=== PATIENT | male | born 1965 | race Caucasian/White ===

== ENCOUNTER 2017-12-19 08:56 | Inpatient (IN) | payer SELFPAY ==
[2017-12-19 09:20] LABS: #Lymphocytes 0.4 thou/uL (1.20-3.40); #Monocytes 0.9 thou/uL (0.11-0.59); #Neutrophils 10.7 thou/uL (1.40-6.50); %Basophils 0.3 % (0.0-1.0); %Eosinophils 0.1 % (0.0-10.0); %Lymphocytes 3.1 % (21.0-51.0); %Monocytes 7.1 % (0.0-10.0); %Neutrophils 89.3 % (42.0-75.0); Hemoglobin 15.5 g/dL (14.0-18.0); Mean Corpuscular HGB CONC 33.6 g/dL (32.0-36.0); Mean Corpuscular Hemoglobin 34.4 pg (27.0-31.0); Mean Platelet Volume 6.7 fL (7.4-10.4); Platelet Count 193 thou/uL (130-400); RBC Distribution Width 13.1 % (11.5-14.5); Red Blood Cell (RBC) Count 4.51 mill/uL (4.70-6.10)
[2017-12-19] MEDS ORDERED: Fentanyl 250 MCG/5 ML VIAL ONE (09:22)
[2017-12-19 09:27] LABS: Bilirubin Negative (Negative); Blood, Urine Small (Negative); Clarity CLEAR (Clear); Glucose, Urine (Dipstick) 100 mg/dL (Negative); Leukocyte Negative (Negative); Nitrite Negative (Negative); Protein, Urine (Dipstick) Negative (Neg-Trace); Specific Gravity, Urine 1.009 (1.002-1.036); Urobilinogen 0.2 mg/dL (0.2-1.0)
[2017-12-19 09:29] LABS: Bacteria/HPF None Seen HPF (None Seen); Hyaline Casts/LPF 4-6 HYALINE CAST LPF (0-3 Hyaline); Pathc Cast-AUWi Flag 1.16 (0-2.49); RBC/HPF 0-3 HPF (0-3); Squamous Epithelial 0-3 HPF (0-3); WBC/HPF None Seen HPF (0-3)
[2017-12-19] MEDS ORDERED: Dextrose 50% Abboject 50 ML SYRINGE SLOW IVP PRN (09:34)
[2017-12-19] MEDS ORDERED: Dextrose 5% in Water 1,000 ML IV PRN (09:34)
[2017-12-19 09:40] LABS: Medtox Reader # READER 1; THC/Cannabinoid Screen Not Detected (NotDetected)
[2017-12-19 09:41] LABS: Amphetamine Not Detected (NotDetected); Barbiturates Screen Not Detected (NotDetected); Benzodiazepine Screen Not Detected (NotDetected); Cocaine Metabolite Screen Not Detected (NotDetected); Medtox Control Line Valid? VALID (VALID); Methadone Not Detected (NotDetected); Methamphetamine Not Detected (NotDetected); Opiate Screen Not Detected (NotDetected); Oxycodone Screen Not Detected (NotDetected); Phencyclidine (PCP) Not Detected (NotDetected); Tricyclic Screen Not Detected (NotDetected)
[2017-12-19 09:44] LABS: ALT (SGPT) 61 U/L (8-55); AST (SGOT) 85 U/L (5-34); Acetaminophen Less than 6.0 mcg/mL (10.0-30.0); Albumin 4.4 g/dL (3.5-5.0); Alcohol 38 mg/dL (Less than 10); Alkaline Phosphatase 87 U/L (40-150); Anion Gap 27 mmol/L (10-20); BUN (Urea Nitrogen) 9 mg/dL (8.4-25.7); Bilirubin, Total 1.3 mg/dL (0.2-1.2); Calc. Creatinine Clearance 0 mL/min (70-130); Calcium 9.5 mg/dL (7.8-10.44); Carbon Dioxide 20 mmol/L (22-29); Chloride 94 mmol/L (98-107); Estimated GFR-MDRD Greater than 90; Globulin 3.2 g/dL (2.4-3.5); Glucose 146 mg/dL (70-105); Potassium 4.1 mmol/L (3.5-5.1); Protein, Total 7.6 g/dL (6.0-8.3); Salicylate Less than 8.0 mg/dL (15.0-30.0); Sodium 137 mmol/L (136-145)
[2017-12-19] MEDS ORDERED: Acetaminophen 1,000 MG in Premix Bag 1 BAG IVPB SCH (09:45)
--- NOTE | 2017-12-19 10:01 | HP ---
CHIEF COMPLAINT: Fall. HISTORY: Patient is a 52-year-old male recently transferred here from [place] who is a known alco holic. Evidently, he fell yesterday, hit his head and was not acting well. This morning, he was fou nd down, not responsive. EMS was called. He was intubated. He had vomit everywhere including aspir ation as I tried to intubate him. He apparently had hit his head about 6:00 p.m. last night. PAST MEDICAL HISTORY: Significant for alcoholism. PAST SURGICAL HISTORY: Unknown. MEDICATIONS: Unknown. SOCIAL HISTORY: Alcoholism. PHYSICAL EXAMINATION: VITAL SIGNS: Temperature 102, pulse 143, 80% sat, blood pressure 140/92. GENERAL: His GCS is 3. His right pupil dilated 4 mm left at 3.5 mm, very minimal reaction. HEENT: He has an endotracheal tube and an oral gastric tube in. He does have a hematoma on the left occipital region. He has black emesis or black coffeeground material from his OG tube. NECK: His neck is in a C-collar. Trachea midline. CHEST: No signs of trauma. He has decreased breath sounds on the left. ABDOMEN: Slightly distended, no scars, no masses, no hernias. EXTREMITIES: Unremarkable. He is very thin. BACK: Unremarkable. GENITOURINARY: He has decreased rectal tone. He has brown stool in the vault. LABORATORY DATA AND IMAGING DATA: Hemoccult positive. His chest x-ray shows a consolidation in the left lobe and the endotracheal tube was in down enough, so it has been advanced. His KUB was unremar kable. His CT scan of the brain shows right subdural epidural with midline shift. C-spine is unrema rkable. Chest showed some consolidation. CT abdomen and pelvis yet to be read, nothing gross, diste nded bladder. ASSESSMENT: Closed head injury with intracranial bleed, midline shift, upper GI bleed, alcohol abuse , aspiration pneumonia. PLAN: Stat neurosurgical consultation. Critical care time 1 hour.
--- NOTE | 2017-12-19 10:11 | RAD ---
AP CHEST: History: Trauma. FINDINGS: An NG tube has been placed. The tip is not visualized but appears positioned through the EG junction. There is hazy opacity overlying the left lung. This could represent pleural fluid layering posterior ly on this semi-erect study. No evidence of rib fracture seen. The right lung is well aerated and umang ar. IMPRESSION: Hazy opacification of the left chest. See CT chest for further characterization. POS: [facility]
--- NOTE | 2017-12-19 10:14 | CT ---
CT CERVICAL SPINE: Technique: Multiple axial tomograms were obtained through the cervical spine with multiplanar reconst ructions. Indication: Trauma. Patient fell with injury to head and neck. FINDINGS: The cervical vertebrae maintain normal height and alignment. There are mild degenerative changes seen with anterior osteophytes at C4, C5, and C6 levels. No evidence of cervical spine fracture. IMPRESSION: No evidence of cervical spine fracture. POS: [facility]
[2017-12-19] MEDS ORDERED: cefTRIAXone\\ROCEPHIN 2 GM VIAL ONE (10:18)
--- NOTE | 2017-12-19 10:21 | CT ---
CT HEAD NONCONTRAST: History: Fall. Head injury. FINDINGS: A very large lentiform heterogeneous predominately hyperdense fluid collection along the inner convex ity of the right calvarium results in displacement of the underlying right cerebral hemisphere by up to 2.9 cm. A peripheral rim of low density fluid may hyper acute hemorrhage. Small amount of subarach noid hemorrhage is present throughout the right cerebral sulci. There is severe effacement of the loly tricular system with up to 1.9 cm leftward shift of the septum pellucidum. Diffuse effacement of the cerebral sulci. Cerebellar tonsils extend into the foramen magnum. Right frontal lobe extends inferio r to the falx. Right temporal lobe protrudes beyond the right tentorium. Large area of decreased dens ity involves the right occipital lobe measuring up to 6.6 cm. Chronic ischemic small vessel disease i s also apparent within the periventricular white matter of each cerebral hemisphere. Paranasal sinuse s remain well aerated. At the expected location of the right side of the david, a vertically oriented area of decreased density is favored to represent the temporal horn of the right lateral ventricle di splaced medially in uncal herniation. IMPRESSION: Very large acute and hyperacute right subdural hematoma with multifocal herniation including uncal he rniation of the right temporal lobe and severe leftward shift of the septum pellucidum. Severe diffus e cerebral edema. Immediate neurosurgical intervention is warranted. Findings were called to Dr. Hunt at 0921 hours. Code CR POS: [facility]
--- NOTE | 2017-12-19 10:38 | CT ---
CT CHEST AND ABDOMEN AND PELVIS WITH IV CONTRAST: Multiple axial tomograms were obtained through the chest, abdomen, and pelvis with IV enhancement. T rauma protocol was followed. INDICATION: Trauma protocol. The patient was found down and unconscious. FINDINGS: CT CHEST: Ground-glass opacification of the left lower lobe without confluent consolidation. This could repres ent early changes of aspiration pneumonia. Close followup recommended. There are also patchy infiltrative changes in the anterior aspect of the right middle lobe, concernin g for aspiration pneumonitis. Mediastinum unremarkable. Bony thorax appears intact. IMPRESSION: Patchy infiltrative changes of the anterior right middle lobe and a ground-glass opacity in the poste rior left lower lobe. Both of these areas of concerning for aspiration pneumonitis. CT ABDOMEN AND PELVIS: The liver shows evidence of fatty infiltration. The spleen and pancreas are unremarkable. Adrenal g lands are unremarkable. Kidneys unremarkable. Bowel loops unremarkable. Urinary bladder is distended. A Main catheter is in place; however, function should be assessed giv en the distended bladder. Prominent calcifications are seen in the prostate. The osseous structures appear intact. IMPRESSION: 1. No acute intraabdominal injury. 2. Distended bladder. A Main catheter is in place; however, function should be assessed. Findings are related to Dr. Walker. CODE CR POS: [facility]
--- NOTE | 2017-12-19 11:22 | RAD ---
FRONTAL VIEW PELVIS: CLINICAL HISTORY: Posttraumatic pelvic pain. FINDINGS: The pelvis is rotated limiting assessment. No dislocation of the hip joints. No discrete fracture e vident. There is a focal rounded density projecting over the right pubic body, not further localized . IMPRESSION: 1. No acute fracture of the pelvis evident. 2. Focal calcification within the pelvis. POS: [facility]
[2017-12-19 11:31] VITALS: BMI 23.8
--- NOTE | 2017-12-19 12:05 | OP ---
DATE OF PROCEDURE: 12/19/2017 PREOPERATIVE DIAGNOSES: 1. Acute severe traumatic brain injury with large complexity of right subdural hematoma. 2. Severe cerebral edema with herniation and evolution. 3. Acute hypoxemic posttraumatic respiratory failure. 4. Probable pulmonary aspiration. POSTOPERATIVE DIAGNOSES: 1. Acute severe traumatic brain injury with large complexity of right subdural hematoma. 2. Severe cerebral edema with herniation and evolution. 3. Acute hypoxemic posttraumatic respiratory failure. 4. Probable pulmonary aspiration. PROCEDURES PERFORMED: 1. Exchange of size 8 endotracheal tube for previous size 7 endotracheal tube over a bougie. 2. Fiberoptic bronchoscopy will bronchioalveolar lavage. INDICATIONS FOR PROCEDURE: A 52-year-old man who was admitted following an apparent ground level fal l with severe acute traumatic brain injury with herniation syndrome and evolution. The patient has b een evaluated by Neurosurgery. He has remained with a [place] coma scale of 3 since initial contact with EMS. Decision was made to pursue a nonoperative management as surgery is unlikely to reverse th is patient's course. He had a chest x-ray which revealed left-sided abnormal pulmonary opacification . Pulmonary aspiration was suspected due to persistent hypoxemia. Decision was made therefore to re place the endotracheal tube for size 8 and then to perform a bronchoscopy. DESCRIPTION OF PROCEDURE: The patient was placed on FiO2 100%. A bougie was passed through the prev ious size 7 endotracheal tube and advanced into the distal trachea. The size 7 endotracheal tube was then withdrawn over the bougie stylet. A size 8 tracheostomy tube was then advanced over the bougie and placed in the distal tracheal lumen without resistance. The bougie was removed. The patient is connected to mechanical ventilation via the newly placed endotracheal tube. Good tidal volume is re turned. Once the tube is secured into place, we decided to proceed with bronchoscopy. Fiberoptic br onchoscope was introduced through this endotracheal tube and advanced to visualize the shanna. The s cope was then advanced to the left upper and left lower lobe where multiple mucous plugs were encount ered and irrigated with saline and evacuated. Scope was then withdrawn and advanced to the right upp er lobe, bronchus intermedius and finally right lower lobe. Again, scattered mucus plugs were encoun tered here, irrigated with saline and evacuated. Following pulmonary toilet, the bronchoscope was wi thdrawn visualizing intact tracheobronchial mucosa. The patient remains hemodynamically stable albei t in, on no narcotics, sedatives or paralytics at this time.
[2017-12-19] MEDS ORDERED: ISOVUE-370 76%-LOCM 1 ML ONE (12:10)
[2017-12-19] MEDS ORDERED: Sodium Chloride 0.9% 1,000 ML IV SCH ×2 (12:15→17:00)
--- NOTE | 2017-12-19 12:39 | PRG ---
DATE OF SERVICE: 12/19/2017 HISTORY OF PRESENT ILLNESS: Mr. Peng is a 52-year-old man who apparently fell down yesterday hitti ng his head. The patient was found this morning down, unknown duration. He was brought to the emerg ency department. Workup revealed a large right convexity subdural hematoma with profound cerebral ed mildred and herniation and evolution. The patient has been evaluated by Neurosurgery and no surgical int ervention is contemplated at this time. He is admitted to the Intensive Care Unit SUBJECTIVE: He is on full mechanical ventilator support, FiO2 of 100%. Initial oxygen saturation wa s noted at 91%. The patient apparently aspirated. I exchanged the size 7 endotracheal tube for a size 8 endotracheal tube to facilitate bronchoscopy. Currently, the patient is in coma. He is not on any narcotics or sedatives. Despite this, Betty c elida scale has remained at 3T. PHYSICAL EXAMINATION: VITAL SIGNS: Includes blood pressure 105/83, pulse 130, respiratory rate 31, temperature is 102.1 de grees Fahrenheit, oxygen saturation was 91%, on FiO2 of 100%. HEENT: Both pupils are fixed at 5 mm. The patient has no gag, but positive corneal and cough reflex es. HEART: Reveals regular rate with sinus tachycardia. No murmurs or gallops auscultated. LUNGS: Reveals bibasilar rhonchi. Breathing is otherwise regular and unlabored. ABDOMEN: Soft, nondistended. Liver and spleen nonpalpable below costal margin. EXTREMITIES: Reveal 2+ radial and pedal pulses bilaterally. No ankle edema. LABORATORY: I have reviewed a CBC with 12,000 white blood cells, hemoglobin and hematocrit 15.5 and 46.2 respectively. Platelet count is 193,000. I also reviewed metabolic profile: Sodium 137, potas sium is 4.1, chloride is 94, bicarbonate 20, BUN 9, creatinine 0.80, glucose is 146. Lactic acid is 5.2. AST and ALT are 85 and 61 respectively. I reviewed the toxicology screen from the emergency de partment which was negative for any illicit substances. Specifically, speaking alcohol level was 38. I have also reviewed the chest x-ray which reveals a left pulmonary opacification. No pneumothorax o r pleural effusion noted. CT scan of the brain reveals a large right convexity subdural hematoma with herniation and evolution. IMPRESSION: 1. Acute devastating traumatic brain injury with a large right convexity subdural hematoma. 2. Brain herniation syndrome and evolution. 3. Acute hypoxemic posttraumatic respiratory failure. 4. Aspiration pneumonia. PLAN: 1. Continue with aggressive pulmonary toilet and broad spectrum antibiotic therapy. 2. Continue with fluid resuscitation to resolve the lactic acidosis. 3. With follow urinary output as end-point of our resuscitation. Above findings and plan will be communicated with the patient's family once they have been contacted. Total critical care time is 45 minutes.
[2017-12-19 13:28] LABS: Lactic Acid 4.7 mmol/L (0.5-2.2)
[2017-12-19] MEDS: Sodium Chloride 0.9% 1,000 ML IV SCH ×2 (13:40→17:58)
[2017-12-19] MEDS ORDERED: Hydrocortisone Sod Succ/PF 100 mg/2 ml Vial ONE (16:15)
[2017-12-19] MEDS ORDERED: Levothyroxine 100 MCG SDV SLOW IVP SCH (16:30)
[2017-12-19] MEDS ORDERED: Calcium Chloride 1 GM/10 ML Abboject SYRINGE ONE (16:45)
[2017-12-19] MEDS ORDERED: Calcium Chloride 1 GM/10 ML Abboject SYRINGE IVP SCH (17:00)
[2017-12-19] MEDS ORDERED: Levothyroxine 100 MCG SDV IVP SCH (17:00)
[2017-12-19] MEDS ORDERED: Hydrocortisone Sod Succ/PF 100 mg/2 ml Vial IVP SCH (17:00)
[2017-12-19] MEDS ORDERED: Albumin 5% 500 ML ONE (17:28)
[2017-12-19 18:04] LABS: CO2 Tension 33.7 mmHg (35.0-45.0); O2 Tension (PaO2) 113.6 mmHg (80.0-100.0); pH, Arterial 7.54 (7.35-7.45)
[2017-12-19 18:05] LABS: Actual Bicarbonate (HCO3a) 28.4 mEq/L (22-28); Base Excess (BEa) 6.2 mEq/L (-2.0 to +3.0); Hemoglobin (Hb) 14.8 g/dL (14.0-18.0); Puncture Site RRA
[2017-12-19 18:06] LABS: ALV-art Gradient 557.275 (0-20)
[2017-12-19 19:27] LABS: Sodium 150 mmol/L (136-145)
[2017-12-19] MEDS ORDERED: hydrALAZINE 20 MG/ML VIAL SLOW IVP PRN (19:54)
[2017-12-19] MEDS ORDERED: Labetalol HCl 100 MG/20 ML VIAL SLOW IVP PRN (19:54)
--- NOTE | 2017-12-19 20:39 | OP ---
DATE OF PROCEDURE: 12/19/2017 PREOPERATIVE DIAGNOSES: 1. Devastating acute traumatic brain injury. 2. Brain herniation and evolution. 3. Acute posttraumatic respiratory failure. POSTOPERATIVE DIAGNOSES: 1. Devastating acute traumatic brain injury. 2. Brain herniation and evolution. 3. Acute posttraumatic respiratory failure. PROCEDURES PERFORMED: 1. Placement of right femoral triple-lumen central venous catheter. 2. Placement of right femoral arterial catheter. SURGEON: Hans Ahumada D.O. INDICATIONS FOR PROCEDURE: A 52-year-old man who suffered devastating acute traumatic brain injury w ith brain herniation and evolution. Ongoing resuscitation is required, pending family conference. DESCRIPTION OF PROCEDURE: The patient was placed in supine position. The right groin was sterilely prepped and draped in usual fashion. A right femoral artery was palpated and then cannulated with a 20-gauge introducer needle returning pulsatile blood. A guidewire was passed through this needle and advanced into the right femoral artery without resistance. Needle was withdrawn over the guidewire. A 20-gauge femoral arterial catheter was then advanced over the guidewire and advanced into the rig ht femoral artery without resistance. The guidewire is removed. Catheter was connected to a transdu cer noting proper arterial waveforms. Catheter secured to right groin using 3-0 silk suture. The ri t femoral vein was then cannulated medial to the arterial pulse, this was done using an 18-gauge in troducer needle returning dark venous blood. A guidewire was advanced through the needle and placed in the right femoral vein without resistance. The needle was withdrawn over the guidewire. A stab i ncision was made adjacent to the guidewire using an 11 scalpel. Dilator was passed over the guidewir e dilating subcutaneous tissue. Dilator was removed and a triple-lumen central venous catheter was a dvanced over the guidewire and placed in the right femoral vein without resistance. Guidewire was re moved. Dark venous blood was aspirated from all 3 ports which were individually flushed with saline. Catheter secured to the right groin using 3-0 silk suture at 2 points. Biopatch and sterile dressi ngs was applied. The patient tolerated this procedure without any apparent complications.
[2017-12-19 23:03] LABS: Sodium 152 mmol/L (136-145)
[2017-12-19] MEDS: Famotidine/PF 20 mg/2ml Vial SLOW IVP SCH (23:23)
--- NOTE | 2017-12-20 00:43 | CON ---
DATE OF CONSULTATION: 12/19/2017 HISTORY OF PRESENT ILLNESS: This is a 52-year-old male who was brought to the emergency room via EMS for head trauma. History is unclear. The patient was in drunk and fell at 1800 yesterday, hitting at the back of his head. The patient was found face down on the couch with vomit around him, some vo daniel aspirated, and the patient had had diarrhea. The patient has not woken up since, currently unres ponsive and intubated. The last seen normal was at 2100 last night. REVIEW OF SYSTEMS: Unable to obtain review of systems the patient is intubated. PAST MEDICAL HISTORY: Unknown. PAST SURGICAL HISTORY: Unknown. SOCIAL HISTORY: Unknown other than patient drinks alcohol every day. ALLERGIES: Unable to obtain any known drug allergies. MEDICATIONS: Unable to obtain. PHYSICAL EXAMINATION: VITAL SIGNS: Pulse 142, temperature 102, O2 sats 80 on ventilator, blood pressure 130/92, respiratio ns 21. The patient is febrile, temperature of 102. He is tachycardic and hypertensive. GENERAL: The patient is unresponsive in the ER, trauma room bed. HEENT: Eyes: Pupils are equal and round, they are not reactive to light. There are no extraocular movements. RESPIRATORY: Breath sounds are clear. The patient is on a ventilator. CARDIOVASCULAR: There is tachycardia, normal heart sounds. NEUROLOGIC: [place] coma scale of 3. Pupils are nonreactive to light. There is no gag reflex, no r esponse to painful stimuli, no scleral reflex. IMAGING: CT head without contrast, large right subdural hematoma and subfalcine herniation. ASSESSMENT AND PLAN: This patient has a large right subdural hematoma and subfalcine herniation. Th ere is no surgical intervention that could create a meaningful outcome for this patient. Neurosurger y signs off.
[2017-12-20] MEDS ORDERED: Norepinephrine 8 MG/0.9% NS 250 ML ONE (02:43)
[2017-12-20] MEDS ORDERED: Insulin Regular 300 UNITS/3 ML VIAL ONE (03:11)
[2017-12-20] MEDS ORDERED: Dextrose 50% Abboject 50 ML SYRINGE ONE (03:11)
[2017-12-20] MEDS ORDERED: Norepinephrine 8 MG/250 ML BAG IVPB PRN (03:12)
[2017-12-20] MEDS ORDERED: Dextrose 50% Abboject 50 ML SYRINGE SLOW IVP SCH (03:15)
[2017-12-20] MEDS ORDERED: Insulin Regular 300 UNITS/3 ML VIAL IVP SCH (03:15)
[2017-12-20] MEDS ORDERED: SODIUM CHLORIDE 0.9% IVPB SCH (03:15)
[2017-12-20] MEDS ORDERED: METHYLPREDNISOLONE SOD SUCC IVPB SCH (03:15)
[2017-12-20] MEDS: Sodium Chloride 0.9% 1,000 ML IV SCH (03:18)
[2017-12-20] MEDS ORDERED: Levothyroxine 100 MCG SDV IVP SCH (03:30)
[2017-12-20 04:19] LABS: INR-International Normal Ratio 1.2; PTT 37.5 SEC (22.9-36.1); Prothrombin Time 15.6 SEC (12.0-14.7)
[2017-12-20 04:25] LABS: Anion Gap 12 mmol/L (10-20); BUN (Urea Nitrogen) 18 mg/dL (8.4-25.7); Calc. Creatinine Clearance 103 mL/min (70-130); Calcium 9.4 mg/dL (7.8-10.44); Carbon Dioxide 29 mmol/L (22-29); Chloride 115 mmol/L (98-107); Estimated GFR-MDRD 85; Glucose 245 mg/dL (70-105); Sodium 154 mmol/L (136-145)
[2017-12-20 04:35] LABS: Lactic Acid 4.4 mmol/L (0.5-2.2)
[2017-12-20 04:36] LABS: Potassium 2.4 mmol/L (3.5-5.1)
[2017-12-20 05:57] LABS: Hemoglobin 11.5 g/dL (14.0-18.0); Mean Corpuscular HGB CONC 34.2 g/dL (32.0-36.0); Mean Corpuscular Hemoglobin 35.1 pg (27.0-31.0); Red Blood Cell (RBC) Count 3.27 mill/uL (4.70-6.10); White Blood Cell (WBC) Count 7.9 thou/uL (4.8-10.8)
[2017-12-20 06:08] LABS: Mean Platelet Volume 7.6 fL (7.4-10.4); Platelet Count 97 thou/uL (130-400)
[2017-12-20 06:09] LABS: Band 29 % (5-11); Lymphocytes 12 % (21-51); MDiff Complete? YES; Monocytes 1 % (0-10); Neutrophil 58 % (42-75); PLT Morphology Comment Appears Decreased; Stomatocytes SLIGHT = 2-5 cells (100X) (0-1/hpf)
[2017-12-20 06:46] LABS: ALT (SGPT) 46 U/L (8-55); AST (SGOT) 78 U/L (5-34); Albumin 3.7 g/dL (3.5-5.0); Alkaline Phosphatase 40 U/L (40-150); Bilirubin, Total 1.2 mg/dL (0.2-1.2); Globulin 1.9 g/dL (2.4-3.5); Magnesium 2.2 mg/dL (1.6-2.6); Phosphorus Less than 1.0 mg/dL (2.3-4.7); Protein, Total 5.6 g/dL (6.0-8.3)
[2017-12-20] MEDS ORDERED: D5 1/4 NS w/20 mEq KCL 1,000 ML IV SCH (07:15)
[2017-12-20] MEDS ORDERED: Potassium Phosphate 30 MMOL in Sodium Chloride 0.9% 500 ML IVPB SCH (07:30)
--- NOTE | 2017-12-20 08:05 | PRG ---
DATE OF SERVICE: 12/19/2017 If there is no note from me yesterday, use the following, although I am fairly sure I dictated one. I personally examined the patient, reviewed imaging records, and agree with documentation of Zaid Kauffman PA-C. Briefly, Jamal Peng was found down today with his last known normal neurological function the day before. He was brought to our emergency department where imaging revealed a large subdural hematoma , midline shift, transtentorial herniation, and posterior cerebral artery strokes from the herniation . We were consulted in an effort to determine whether surgical intervention would offer any meaningf ul recovery or meaningful chance of survival. I examined the patient, and Mr. Peng has large midline pupils that do not react. There is no doll' s eyes maneuver. He has a bit of a corneal reflex and he is breathing over the vent. There is no mo tion in the extremities. His CT findings are described above. There is significant shift of the brainstem at the level of the tentorium. IMPRESSION: Massive subdural hematoma with un-survivable injury. PLAN: I personally called the patient's sister on the phone, who is going to pickle maker her father in t he car in [place] and come to [place], I anticipate coming by tomorrow. I did not offer any hope of a meaningful recovery and return to independence. Neurosurgery team will continue to follow if the rodney brown has questions or wants to talk to our service.
--- NOTE | 2017-12-20 08:21 | PRG ---
DATE OF SERVICE: 12/20/2017 NEUROSURGERY NOTE SUBJECTIVE: I saw Mr. Peng in the ICU. Overnight, he developed diabetes insipidus from his brain herniation syndrome. He lost his corneal reflexes. I do not see spontaneous breaths on the ventilat or, but I have not done a formal apnea test. Discussed the case with Dr. Ahumada. We are waiting for the arrival of the sister. I spent time reviewing the films and case again from yesterday. Dr. Ahumada and the Trauma Surgery [facility] are planning an apnea testing today and if he fails the apnea testing, then contact will be made to the sister about organ donation. If apnea testing is equivocal, then brain perfusion study can be p erformed. I will be available for questions from the patient's sister today should she have any when she arrive s.
--- NOTE | 2017-12-20 08:26 | RAD ---
CHEST 1 VIEW: COMPARISON: Respiratory failure. Ventilated patient. COMPARISON: 12/19/17. FINDINGS: Improved aeration of the left lung. Residual interstitial and alveolar infiltrates do remain. Stabl e appearance of an endotracheal nasogastric tube. Normal cardiac silhouette. No pleural effusion. No pneumothorax. However, there does appear to be subcutaneous emphysema in the left and right neck. Correlate clinically. IMPRESSION: 1. Improved aeration of left lung. 2. Subcutaneous emphysema noted in the left and right neck, incompletely evaluated. Additional imag ing as warranted. CODE T POS: [facility]
[2017-12-20] MEDS: Famotidine/PF 20 mg/2ml Vial SLOW IVP SCH (10:57)
--- NOTE | 2017-12-20 10:59 | NM ---
NUCLEAR MEDICINE CEREBRAL FLOW STUDY: CLINICAL HISTORY: Posttraumatic head injury. COMPARISON: Reference is made to head CT of previous day. FINDINGS: Subsequent to IV administration of 25 mCi Technetium 99m MDP, scintigraphic imaging of the brain was performed. There is absence of cerebral perfusion. IMPRESSION: Absence of cerebral perfusion. A telephone call of the findings was placed to the ordering physician, Hans Ahumada D.O., of trauma surgery department at the time of interpretation 0950 hours, 12/20/17. CODE CR POS: [id number]
[2017-12-20 13:23] VITALS: TEMP 98.5
--- NOTE | 2017-12-20 13:50 | PRG ---
DATE OF SERVICE: 12/20/2017 SUBJECTIVE: Mr. Peng is a 52-year-old man who suffered a devastating acute traumatic brain injury and arrived hospital in extremis with brainstem herniation and evolution. He has remained with a [place] coma scale of 3 since arrival. He has been on no sedatives or narcotics. Overnight, he develop ed a brief episode of diabetes insipidus, which resolved with one dose of DDAVP. He has been hemodyn amically unstable requiring aggressive fluid resuscitation, vasopressor support and ultimately a T4 p rotocol was initiated. Currently, blood pressure is stable. Urinary output has now been approximate ly 0.5 mL per kilogram per hour for the last 4-5 hours. OBJECTIVE: VITAL SIGNS: Includes blood pressure 114/76, pulse is 86, respiratory rate is 15 and on full mechani cesar ventilatory support. The patient has no spontaneous respiration. Maximum temperature since admi ssion is 105.6. Currently, temperature is 99.2 degrees Fahrenheit. HEENT: Both pupils are fixed and dilated at 6 mm. The patient has no corneal, gag, cough, doll's ey es or cold caloric reflexes. HEART: Reveals regular rate and rhythm, no murmurs or gallops auscultated. LUNGS: Clear to auscultation bilaterally. Breathing is regular and unlabored. ABDOMEN: Soft and nondistended. Liver and spleen remain nonpalpable below costal margin. EXTREMITIES: Reveal 2+ radial and pedal pulses bilaterally. No ankle edema present. LABORATORY DATA: This morning includes a CBC with 7900 white blood cells, hemoglobin and hematocrit are 11.5 and 33.6 respectively. Platelet count is 97,000. Metabolic profile: Sodium 154, potassium is 2.4, chloride is 115, bicarbonate is 29, BUN 18, creatinine 0.93, glucose is 245, phosphorus is l ess than 1, magnesium is 2.2, total bilirubin is 1.2, AST and ALT are 78 and 46 respectively. Lactic acid is 4.4 this morning. This is in contrast to 5.2 yesterday. IMPRESSION: 1. Status post apparent ground level fall. 2. Acute devastating traumatic brain injury with right convexity subdural hematoma and massive cereb ral edema. 3. Complete brain herniation. 4. Acute posttraumatic respiratory failure. 5. Acute hypernatremia secondary to diabetes insipidus, stable. 6. Acute hypokalemia. 7. Acute hypophosphatemia. 8. Acute hyperglycemia. PLAN: 1. Correct all abnormal electrolytes. Continue with full mechanical ventilatory support and critica l care resuscitation until family arrives. 2. We will perform an apnea test and brain flow study to confirm brain . The above findings and plan will be discussed with the patient's family upon arrival Total critical care time is 45 minutes.
[2017-12-20 14:29] VITALS: BP 114/83
[2017-12-20 16:23] LABS: CO2 Tension 38.9 mmHg (35.0-45.0); pH, Arterial 7.48 (7.35-7.45)
[2017-12-20 16:24] LABS: Actual Bicarbonate (HCO3a) 28.3 mEq/L (22-28); Base Excess (BEa) 4.6 mEq/L (-2.0 to +3.0); O2 Tension (PaO2) 546.3 mmHg (80.0-100.0)
[2017-12-20 16:25] LABS: Hemoglobin (Hb) 12.2 g/dL (14.0-18.0)
[2017-12-20 16:27] LABS: Calcium, Ionized 1.2 mmol/L (1.12-1.30)
[2017-12-20 16:28] LABS: Puncture Site A-LINE
[2017-12-20 16:29] LABS: ALV-art Gradient 118.075 (0-20)
[2017-12-20 16:33] LABS: pH, Arterial 7.28 (7.35-7.45)
[2017-12-20 16:34] LABS: Actual Bicarbonate (HCO3a) 29.3 mEq/L (22-28); Base Excess (BEa) 1.3 mEq/L (-2.0 to +3.0); CO2 Tension 63.3 mmHg (35.0-45.0); O2 Tension (PaO2) 465.3 mmHg (80.0-100.0)
[2017-12-20 16:38] LABS: Hemoglobin (Hb) 12.4 g/dL (14.0-18.0)
[2017-12-20 16:43] LABS: Calcium, Ionized 1.3 mmol/L (1.12-1.30)
[2017-12-20 16:44] LABS: Puncture Site A-LINE
[2017-12-20 16:46] LABS: ALV-art Gradient 168.575 (0-20)
--- NOTE | 2017-12-21 01:27 | DIS ---
DATE OF ADMISSION: 12/19/2017 DATE OF DISCHARGE: 12/20/2017 ADMISSION DIAGNOSES: 1. Status post fall. 2. Severe traumatic brain injury. 3. History of alcohol abuse. 4. Aspiration pneumonitis. DISCHARGE DIAGNOSES: 1. Status post fall. 2. Severe traumatic brain injury. 3. History of alcohol abuse. 4. Aspiration pneumonitis. 5. Brain . CONSULTANTS: Dr. Marie, Neurosurgery. HOSPITAL COURSE: Jamal Peng is a 52-year-old male who presented to [facility] 1-day status post fall. Workup in the emergency room revealed a large right subdural hematoma with cerebral edema and herniation. Pupils were fixed and dilated upon arrival. Neurosurgery saw and evaluated the patient and he was not a candidate for surgical intervention. Overnight, the patient continued to herniate to brain . He was pronounced at 1001 on 12/20/2017 after undergoing clinical brain examination by Dr Ahumada. Family was notified by Dr. Marie, Neurosurgery. DISCHARGE DISPOSITION: [facility]. Discharge physical examination consistent with brain . [facility]
[2017-12-21 02:18] LABS: CO2 Tension 32.1 mmHg (35.0-45.0); O2 Tension (PaO2) 400.9 mmHg (80.0-100.0); pH, Arterial 7.52 (7.35-7.45)
[2017-12-21 02:19] LABS: Actual Bicarbonate (HCO3a) 25.3 mEq/L (22-28); Base Excess (BEa) 2.6 mEq/L (-2.0 to +3.0); Hemoglobin (Hb) 9.8 g/dL (14.0-18.0)
[2017-12-21 02:20] LABS: ALV-art Gradient 271.975 (0-20); Calcium, Ionized 1.1 mmol/L (1.12-1.30); Puncture Site ALINE
== END 2017-12-20 10:01 | disposition expired | DRG 987 ==
LOC: ERS 08:56 → CCU 09:43 → CDU 12-20 15:24 → CCU 12-20 15:25
PROVIDERS: ADMIT Surgery; ATTEND Surgery
PROC: 0BH17EZ Insertion of Endotracheal Airway into Trachea, Via Natural or Artificial Opening (ICD-10-PCS; principal; 2017-12-19)
PROC: 5A1945Z Respiratory Ventilation, 24-96 Consecutive Hours (ICD-10-PCS; 2017-12-19)
PROC: 0B9J8ZX Drainage of Left Lower Lung Lobe, Via Natural or Artificial Opening Endoscopic, Diagnostic (ICD-10-PCS; 2017-12-19)
PROC: 0B9C8ZX Drainage of Right Upper Lung Lobe, Via Natural or Artificial Opening Endoscopic, Diagnostic (ICD-10-PCS; 2017-12-19)
PROC: 0B9G8ZX Drainage of Left Upper Lung Lobe, Via Natural or Artificial Opening Endoscopic, Diagnostic (ICD-10-PCS; 2017-12-19)
PROC: 0B9F8ZX Drainage of Right Lower Lung Lobe, Via Natural or Artificial Opening Endoscopic, Diagnostic (ICD-10-PCS; 2017-12-19)
PROC: 06HY33Z Insertion of Infusion Device into Lower Vein, Percutaneous Approach (ICD-10-PCS; 2017-12-19)
PROC: 04HY32Z Insertion of Monitoring Device into Lower Artery, Percutaneous Approach (ICD-10-PCS; 2017-12-19)
PROC: 0B21XEZ Change Endotracheal Airway in Trachea, External Approach (ICD-10-PCS; 2017-12-19)
DX: J69.0 Pneumonitis due to inhalation of food and vomit; J96.01 Acute respiratory failure with hypoxia; E23.2 Diabetes insipidus; R40.2432 Glasgow coma scale score 3-8, at arrival to emergency department; W19.XXXA Unspecified fall, initial encounter; F10.20 Alcohol dependence, uncomplicated; E87.6 Hypokalemia; E83.39 Other disorders of phosphorus metabolism; Z78.1 Physical restraint status
CPT/HCPCS: 36415; 70450; 71045; 71260; 72125; 72170; 74177; 78610; 80053; 80306; 80307; 81003; 81015; 82150; 82274; 82533; 82805; 83605; 83735; 83930; 84100; 85025; 85610; 85730; 86850; 86900; 86901; 87040; 87086; 93005; 94002; 94003; 94640; 96365; 96375; A9521; G0390; J0131; J0360; J0696; J1720; J1815; J2597; J2930; J3010; J3480; J7042; J7050; J7620; P9045; S0028

== ENCOUNTER 2017-12-20 10:01 | Day surgery (SDC) | payer OTHER, SELFPAY ==
[2017-12-20] MEDS ORDERED: Insulin Regular 300 UNITS/3 ML VIAL IVP SCH (17:45)
[2017-12-20] MEDS ORDERED: Levothyroxine 100 MCG SDV SLOW IVP SCH (17:45)
[2017-12-20] MEDS ORDERED: methylPREDNISolone Sod Succ 2 gm/30 ml Vial IVP SCH (17:45)
[2017-12-20] MEDS ORDERED: Levothyroxine Sodium 400 MCG in Sodium Chloride 0.9% 100 ML IVPB SCH (17:45)
[2017-12-20] MEDS ORDERED: Dextrose 50% Abboject 50 ML SYRINGE SLOW IVP SCH (17:45)
[2017-12-20 18:35] LABS: INR-International Normal Ratio 1.1; PTT 30.5 SEC (22.9-36.1); Prothrombin Time 14.1 SEC (12.0-14.7)
--- NOTE | 2017-12-20 18:43 | RAD ---
SINGLE VIEW OF THE CHEST: 12/20/17 COMPARISON: 12/20/17 at 6:59 a.m. HISTORY: Donor management. Intracranial hemorrhage. FINDINGS: Single view of the chest shows a normal sized cardiomediastinal silhouette. The endotracheal tube and NG tube are unchanged in position. There is no evidence of consolidation, mass, or pleural effusion. . IMPRESSION: No evidence of acute cardiopulmonary disease. POS: [facility]
[2017-12-20 18:51] LABS: ALT (SGPT) 78 U/L (8-55); AST (SGOT) 151 U/L (5-34); Albumin 3.4 g/dL (3.5-5.0); Alkaline Phosphatase 38 U/L (40-150); Anion Gap 10 mmol/L (10-20); BUN (Urea Nitrogen) 9 mg/dL (8.4-25.7); Bilirubin, Total 0.8 mg/dL (0.2-1.2); Calc. Creatinine Clearance 116 mL/min (70-130); Calcium 8.7 mg/dL (7.8-10.44); Carbon Dioxide 29 mmol/L (22-29); Chloride 114 mmol/L (98-107); Estimated GFR-MDRD Greater than 90; Globulin 1.9 g/dL (2.4-3.5); Glucose 223 mg/dL (70-105); Lipase 18 U/L (8-78); Magnesium 2.1 mg/dL (1.6-2.6); Phosphorus 2.6 mg/dL (2.3-4.7); Potassium 3.2 mmol/L (3.5-5.1); Protein, Total 5.3 g/dL (6.0-8.3); Sodium 150 mmol/L (136-145)
[2017-12-20 18:52] LABS: Band 14 % (5-11); Hemoglobin 10.9 g/dL (14.0-18.0); MDiff Complete? YES; Mean Corpuscular HGB CONC 33.9 g/dL (32.0-36.0); Mean Corpuscular Hemoglobin 35.2 pg (27.0-31.0); Mean Platelet Volume 7.7 fL (7.4-10.4); Neutrophil 86 % (42-75); PLT Morphology Comment Appears Decreased; Platelet Count 85 thou/uL (130-400); RBC Distribution Width 12.9 % (11.5-14.5)
[2017-12-20 18:59] LABS: Troponin I 0.346 ng/mL (< 0.028)
[2017-12-20] MEDS ORDERED: Albumin 25% 25 GM/100 ML BOT IVPB SCH (19:15)
[2017-12-20] MEDS: Phytonadione 10 MG/ML AMP SLOW IVP SCH ×2 (19:24→22:30)
[2017-12-20] MEDS ORDERED: Vasopressin 20 UNIT, Admixture Fee 1 EACH in Sodium Chloride 0.9% 250 ML 250 ML IV SCH (20:45)
[2017-12-20] MEDS ORDERED: Norepinephrine 8 MG/250 ML BAG IVPB PRN (20:46)
[2017-12-20] MEDS ORDERED: Vecuronium 10 MG VIAL IV PRN (20:48)
[2017-12-20] MEDS ORDERED: Sodium Chloride 0.45% 1,000 ML IV SCH (21:30)
[2017-12-20] MEDS ORDERED: CEFAZOLIN 1 GM in Sodium Chloride 0.9% 100 ML IVPB SCH (22:00)
[2017-12-20] MEDS ORDERED: CEFAZOLIN 1 GM VIAL ONE (22:31)
[2017-12-21 02:27] VITALS: BP 137/69
[2017-12-21 02:59] LABS: INR-International Normal Ratio 1.1; PTT 32.4 SEC (22.9-36.1); Prothrombin Time 14.2 SEC (12.0-14.7)
[2017-12-21 03:12] LABS: ALT (SGPT) 95 U/L (8-55); AST (SGOT) 191 U/L (5-34); Albumin 4.2 g/dL (3.5-5.0); Alkaline Phosphatase 30 U/L (40-150); Anion Gap 10 mmol/L (10-20); BUN (Urea Nitrogen) 7 mg/dL (8.4-25.7); Bilirubin, Total 0.9 mg/dL (0.2-1.2); Calc. Creatinine Clearance 130 mL/min (70-130); Calcium 9.3 mg/dL (7.8-10.44); Carbon Dioxide 29 mmol/L (22-29); Chloride 117 mmol/L (98-107); Estimated GFR-MDRD Greater than 90; Globulin 1.6 g/dL (2.4-3.5); Glucose 163 mg/dL (70-105); Magnesium 2.3 mg/dL (1.6-2.6); Phosphorus 2.3 mg/dL (2.3-4.7); Protein, Total 5.8 g/dL (6.0-8.3); Sodium 153 mmol/L (136-145)
[2017-12-21 03:28] VITALS: TEMP 97.5
[2017-12-21 04:24] LABS: Bilirubin Small (Negative); Blood, Urine Negative (Negative); Clarity CLEAR (Clear); Glucose, Urine (Dipstick) 100 mg/dL (Negative); Leukocyte Negative (Negative); Nitrite Negative (Negative); Protein, Urine (Dipstick) 30 mg/dL (Neg-Trace); Specific Gravity, Urine 1.023 (1.002-1.036)
[2017-12-21 04:26] LABS: Bacteria/HPF None Seen HPF (None Seen); Hyaline Casts/LPF 0-3 HYALINE CAST LPF (0-3 Hyaline); Pathc Cast-AUWi Flag 0.72 (0-2.49); Squamous Epithelial 0-3 HPF (0-3); WBC/HPF 0-3 HPF (0-3)
[2017-12-21 05:05] LABS: Renal Epithelial None Seen HPF (0-3); Transitional Epithelial NONE SEEN HPF (0-3)
--- NOTE | 2017-12-21 10:54 | RAD ---
CHEST 1 VIEW: HISTORY: Respiratory distress. Ventilated patient. Lung evaluation. COMPARISON: 12/20/17. FINDINGS: Endotracheal and nasogastric tube are redemonstrated. Normal cardiac silhouette. Stable aeration of the lung parenchyma. No consolidation or masses. No pneumothorax on the semiupright projection. N o osseous abnormalities. IMPRESSION: No acute cardiopulmonary process. POS: [facility]
== END 2017-12-21 04:30 | disposition critical access hospital (66) ==
LOC: CCU 10:01 → SDC 10:01 → EDSTATUS 16:48 → SDC 12-21 04:30
DX: Z00.5 Encounter for examination of potential donor of organ and tissue (principal)
CPT/HCPCS: 71045; 80053; 81001; 82150; 83690; 83735; 84100; 84484; 85610; 85730; 93005; 93010; 94003; J0690; J2370; J3430; J7050; P9045; P9047